=== PATIENT | female | born 1975 | race Hispanic/Latino ===

== ENCOUNTER → 2019-03-05 | Day surgery (SDC) | payer OTHER ==
[2019-03-01 14:35] LABS: BASOPHILS % 0.6 % (0.0-1.0); EOSINOPHILS # (AUTO) 0.1 (0.0-0.4); EOSINOPHILS % 1.7 % (0.0-6.0); HEMOGLOBIN 9.3 g/dL (12.0-16.0); LYMPHOCYTES # (AUTO) 1.8 (1.0-3.2); LYMPHOCYTES % 29.1 % (18.0-39.1); MEAN CORPUSCULAR HEMOGLOBIN 22.5 pg (28-32); MEAN CORPUSCULAR VOLUME 75.1 fL (81-99); MONOCYTES # (AUTO) 0.6 (0.2-0.8); NEUTROPHILS # (AUTO) 3.7 (2.1-6.9); NEUTROPHILS % 58.3 % (38.7-80.0); PLATELET COUNT 451 x10e3/uL (140-360); RED BLOOD COUNT 4.13 x10e6/uL (3.6-5.1)
[2019-03-01 14:42] LABS: CLARITY,URINE SL CLOUDY (CLEAR); COLOR,URINE YELLOW (YELLOW)
[2019-03-01 14:43] LABS: BILIRUBIN,URINE NEGATIVE (NEGATIVE); KETONES,URINE NEGATIVE (NEGATIVE); LEUKOCYTE ESTERASE ,URINE NEGATIVE (NEGATIVE); NITRITE,URINE NEGATIVE (NEGATIVE); PROTEIN,URINE DIPSTICK TRACE (NEGATIVE); URINE UROBILINOGEN 0.2 mg/dL (0.2 - 1)
[2019-03-01 14:50] LABS: ANION GAP 14.7 mmol/L (8-16); BLOOD UREA NITROGEN 11 mg/dL (7-26); BUN/CREATININE RATIO 14 (6-25); CALCIUM 9.4 mg/dL (8.4-10.2); CARBON DIOXIDE 24 mmol/L (22-29); CHLORIDE 103 mmol/L (98-107); CREATININE, SERUM 0.77 mg/dL (0.57-1.11); EST GLOMERULAR FILTRATION RATE > 60 ML/MIN (60-); GLUCOSE 83 mg/dL (74-118); POTASSIUM 3.7 mmol/L (3.5-5.1); SODIUM 138 mmol/L (136-145)
[~2019-03-05] MED LIST: ACETAMINOPHEN 1000 MG/100 ML IV ONE; DEXAMETHASONE SOD PHOS INJ 4 MG/ML VIAL ONE; FENTANYL CITRATE/PF 100MCG/2 ML INJ ONE; FERROUS SULFAT325 MG PO; KETOROLAC TROMETHAMINE 30 MG/ML VIAL ONE; LIDOCAINE HCL 2% LOCAL INJ 5 ML SDV VIAL INJ ONE; MIDAZOLAM HCL 2 MG/2 ML VIAL ONE; ONDANSETRON HCL INJ 2MG/ML 2ML 2 MG/ML VIAL ONE; PROPOFOL IV EMULSION 10 MG/ML 20 ML VIAL ONE; SEVOFLURANE INHAL SOLN 250 ML PEN BTL ONE; SILVER NITRATE SWABS ONE; SODIUM CHLORIDE 0.9% INJ 10 ML VIAL ONE; VASOPRESSIN INJ 20 UNIT/ML VIAL ONE
[2019-03-05 12:55] VITALS: BP 141/82
--- NOTE | 2019-03-05 18:40 | Operative Report ---
DATE OF PROCEDURE: 03/05/2019 SURGEON: Cedric Boss MD PREOPERATIVE DIAGNOSES: 1. Menorrhagia. 2. Anemia. 3. Failed endometrial biopsy attempt. POSTOPERATIVE DIAGNOSES: 1. Menorrhagia. 2. Anemia. 3. Failed endometrial biopsy attempt. 4. Intracavitary fibroid and polyp. TITLE OF PROCEDURE: 1. Hysteroscopy. 2. Dilatation and curettage with HTA ablation. ANESTHESIA: General with Dr. Elder. INDICATION FOR OPERATION: The patient is a 44-year-old, 3, para 3, with last menstrual period February 22, 2019, on no contraception with heavy menses lasting 7-16 days for the past 2 years. Endometrial biopsy attempt failed. The patient is therefore here for hysteroscopy, D and C with HTA ablation. The endometrium was 1.1 cm thick. The patient understands the chance of possibly having an ablation with hyperplasia or cancer, but due to the difficulty of ability to obtain endometrial biopsy and due to her medical situation, it was felt that it would be best to do the endometrial sampling and ablation at once in order to avoid excess procedures for her. She is therefore taken to the operating room at this time. FINDINGS AT SURGERY: There was an endometrial polyp and fibroid noted within the cavity. Both ostia were visualized. The polyp was removed with curettage and sent to pathology. The fibroid was approximately 1-2 cm in size and was well ablated. It was pedunculated intracavitary. DESCRIPTION OF PROCEDURE: The patient was taken to the operating room and placed on the table in supine position. General anesthesia was administered. The patient was then placed in the lithotomy position. The perineum was prepared and draped in the usual sterile manner. Pelvic exam revealed a 6-8 week size anteverted, anteflexed uterus, not mobile with no adnexal masses. The bladder was drained by in and out catheterization. A weighted speculum was placed in the posterior vaginal wall, however, we were not able to visualize the cervix, therefore, we used a single-sided Graves speculum and we were able to visualize the cervix and it was grasped with single-tooth tenaculum. Then, with Peguero dilators, the endocervical canal was dilated up to #25. Then, the hysteroscope was placed. We were able to identify polyp and fibroid within the endometrial cavity. We then proceeded with curettage. Curettage was continued until it was felt that adequate tissue was obtained. This tissue was obtained including what looked like a 1 cm polyp, it was sent to pathology for definitive diagnosis. At this point, we reinserted the hysteroscope and we were able to visualize the ostia, checked to make sure seal was tight and then we proceeded with an HTA ablation. The cavity was slowly heated up to 80 degree Celsius, making sure that there was no leakage of fluid. We then ablated for 10 minutes. A good ablation was obtained and then this fluid was cooled down and then we looked around, identified the ostia, again noted a good ablation and then the cavity was much easier to visualize with the polyp gone and the fibroid ablated with . At this point, noting a good ablation obtained, the procedure was deemed terminated. All the fluid and instruments were removed from the vagina. There was zero fluid deficit and the tenaculum site had a small amount of bleeding, which was treated with a silver nitrate stick with good cessation of the bleeding. There were no complications noted. Estimated blood loss was 10 mL. The patient tolerated the procedure well, was transferred from the operating room to the recovery room in stable condition. MD LUISITO Dutta/GABBY /[id number]
== END | disposition home or self-care (01) ==
LOC: OR 07:57
PROVIDERS: ATTEND Obstetrics & Gynecology
DX: D25.9 Leiomyoma of uterus, unspecified (principal); N84.0 Polyp of corpus uteri; D64.9 Anemia, unspecified; N92.0 Excessive and frequent menstruation with regular cycle; G43.909 Migraine, unspecified, not intractable, without status migrainosus; R42 Dizziness and giddiness; F41.9 Anxiety disorder, unspecified; Z01.812 Encounter for preprocedural laboratory examination
CPT/HCPCS: 36415; 58563; 80048; 81003; 81025; 85025; 88305; J0131; J1100; J1885; J2001; J2250; J2405; J2704; J3010